=== PATIENT | female | born 1945 | race Caucasian/White ===

== ENCOUNTER → 2018-07-05 | Outpatient (CLI) | payer MEDICARE ==
--- NOTE | 2018-07-05 14:48 | BD ---
EXAMINATION TYPE: Bone Density DATE OF EXAM: 07/05/2018 COMPARISON: 11.29.2012 CLINICAL HISTORY: 73 YR OLD FEMALE....ICD-10 CODE: M85.88 SPECIFIED DISORDER Height: 62.5 Weight: 188 FRAX RISK QUESTIONS: Glucocorticoids (More than 3mos): YES (Ex: prednisone, prednisolone, methylprednisolone, dexamethasone, and hydrocortisone). RISK FACTORS HISTORY OF: Surgery RT HIP, THR 2006 Family History of Osteoporosis: UNKNOWN Diet low in dairy products/other sources of calcium: NO Postmenopausal woman: NATURAL IN HER 50'S...53 MEDICATIONS: Prednisone or other steroids: YES, PREDNISONE FOR ABOUT 1 YR Thyroid Medications: YES, SYNTHROID...FOR ABOUT 30+YRS Additional Medications: HX OF CHEMO, RYTUXIN, CELEXA, VIT D3, REFLUX MEDS PRN Additional History: SMALL CELL B CELL NON-HODGKIN'S LYMPHOMA, EXAM MEASUREMENTS: Bone mineral densitometry was performed using the [employer] System. Bone mineral density as measured about the Lumbar spine is: ----- L1-L4(G/cm2): 1.230 T Score Values are as follows: ----- L1: 0.1 ----- L2: -0.4 ----- L3: 0.4 ----- L4: 1.1 ----- L1-L4: 0.4 Bone mineral density has: Increased 2.0% since study of: 11.29.2012 Bone mineral density about the L hip (g/cm2): 0.976 T Score values are as follows: -----L Neck: -1.7 -----L Total: -0.3 Bone mineral density has: Increased 2.4% since study of: 11.29.2012 FRAX%s: THERE IS A 16.5% CHANCE OF A MAJOR OSTEOPOROTIC FX AND A 3.5% FOR HIP FX.....PROBABILITY O F FX IN 10 YRS TIME IMPRESSION: Osteopenia (T Score between -2.5 and -1). There is slightly increased risk of fracture and the patient may be considered for treatment. Re-Screen 2-5 years. NOTE: T-SCORE=SD OF THE YOUNG ADULT MEAN.
--- NOTE | 2018-07-07 11:21 | MM ---
Reason for exam: screening (asymptomatic). Last mammogram was performed 3 years and 8 months ago. History: Patient is postmenopausal. Family history of breast cancer in grandmother. Physical Findings: A clinical breast exam by your physician is recommended on an annual basis and results should be correlated with mammographic findings. MG 3D Screening Mammo W/Cad Bilateral CC and MLO view(s) were taken. Prior study comparison: November 13, 2014, bilateral MG screening mammo w CAD. November 29, 2012, bilateral digital screening mammo w/CAD. The breast tissue is almost entirely fat. No significant changes when compared with prior studies. ASSESSMENT: Negative, BI-RAD 1 RECOMMENDATION: Routine screening mammogram of both breasts in 1 year.
== END | disposition home or self-care (01) ==
LOC: RADMAMWWP 11:44
PROVIDERS: ATTEND Family Medicine
DX: Z12.31 Encounter for screening mammogram for malignant neoplasm of breast (principal); M85.88 Other specified disorders of bone density and structure, other site
CPT/HCPCS: 77063; 77067; 77080